=== PATIENT | female | born 1945 | race Caucasian/White ===

== ENCOUNTER 2017-03-13 12:04 | Emergency (ER) | payer MEDICARE, BC ==
[~2017-03-13] VITALS: Ht 160 cm; Wt 73.5 kg
--- OUTSIDE RECORDS SUMMARY | 2017-03-13 12:12 | External Medical Summary Rpt ---
Author Author JONA Day, [employer] Organization [employer] Address Unknown Phone Unavailable
--- OUTSIDE RECORDS SUMMARY | 2017-03-13 12:12 | External Medical Summary Rpt | CCD ---
Author Author [employer] Organization [employer] Address Unknown Phone Unavailable Purpose Continuity of Care Document - through 2016
--- OUTSIDE RECORDS SUMMARY | 2017-03-13 12:12 | External Medical Summary Rpt | CCD ---
Author Author JONA Address Unknown Phone [email or web address] Purpose Continuity of Care Document - through 2016
--- OUTSIDE RECORDS SUMMARY | 2017-03-13 12:12 | External Medical Summary Rpt | CCD ---
Demographics Preferred Language Burmese Marital Status Unknown Faith Affiliation Unknown Race Unknown Ethnic Group Unknown Author Author JONA Address Unknown Phone Immunization No patient found.
--- OUTSIDE RECORDS SUMMARY | 2017-03-13 12:12 | External Medical Summary Rpt | CCD ---
Author Author JONA Address Unknown Phone Purpose Continuity of Care Document - through 2016
--- OUTSIDE RECORDS SUMMARY | 2017-03-13 12:12 | External Medical Summary Rpt | CCD ---
Demographics Preferred Language Qatari Marital Status Unknown Mosque Affiliation Unknown Race Unknown Ethnic Group Unknown Author Author JONA Address Unknown Phone Immunization No patient found.
--- NOTE | 2017-03-13 12:32 | Urgent Treatment Center Report ---
History of Present Issue Date/Time Seen by Provider 03/13/17 1232 Visit Reason Pt arrived:Walked Presenting Problem:URINARY PRESSURE, FREQUENCY BEGAN YESTERDAY, FEELS SHE HAS A UTI Location if Accident: Onset of symptoms date/time:/ or onset unknown for:MEDICAL HX UNKNOWN Have you (or family members/close friends) recently traveled outside the [place]? N If Yes, where/when: Have you had exposure to infectious disease within the past month? TB? Other? Specify: Patient state that she has a history of UTI State that she began feeling pain and pressure with urination yesterday State that she feels like she continuously has to go State that she felt like this the last time she had a UTI State that today she has been having some slight pain and discomfort in her lower back so she came in to have her urine checked ALLERGIES Coded Allergies: No Known Allergies (03/13/17) History Medical History General Hypertension? Yes Immunization HX DT/Tetanus Unknown Surgical Hx Previous Surgery?N Social History Smoking Hx Smoker: Never Smoker Tobacco: No Review of Systems All Other Systems Reviewed and Negative Genitourinary dysuria. Physical Exam Vital Signs Vital Signs Date Time Temp Pulse Resp B/P Pulse O2 O2 Flow FiO2 Ox Delivery Rate 03/13 1218 97.4 70 16 117/79 100 General Appearance normal appearance, WD/WN, no apparent distress Respiratory Status Yes: trachea midline, chest symmetrical, non tender chest. No: respiratory distress. Lung Sounds bilateral: normal breath sounds, lungs clear. Cardiovascular normal exam, regular rate/rhythm, no peripheral edema Gastrointestinal normal bowel sounds, normal exam, non tender, no guarding, no rebound Neurologic alert, normal exam, oriented x 3 Medical Decision Making LABS/Meds/Orders Pt receiving controlled substance in ED? No Results/Orders Laboratory Tests 03/13/17 1235: Urine Color YELLOW, Urine Appearance CLEAR, Urine pH 6.0, Ur Specific [place] <= 1.005, Urine Protein NEGATIVE, Urine Ketones NEGATIVE, Urine Blood NEGATIVE, Urine Nitrate NEGATIVE, Urine Bilirubin NEGATIVE, Urine Urobilinogen 0.2, Ur Leukocyte Esterase TRACE H, Urine Glucose NEGATIVE Orders Procedure Date/time Status [facility] 03/13 1235 Complete Departure Departure Time of Disposition 1239 Disposition DC Home or Self Care(routine) Clinical Impression Primary Impression: UTI (urinary tract infection) Qualifiers: Urinary tract infection type: site unspecified Hematuria presence: without hematuria Qualified Code: N39.0 - Urinary tract infection, site not specified Condition STABLE Referrals JOSE ALFREDO CARTER (Family): 3 Days-Call Office if no improvement Patient Instructions DI for Urinary Tract Infection (UTI), Urinary Tract Infection Additional Instructions *Increase fluids. Water not Soda or Tea *Start antibiotic immediately and be sure to take as ordered for the FULL length of time although you should start to see improvement over the next 48 hours *Pyridium as needed Remember this medication will turn your urine [place]. This is normal but it will stain what ever it gets on *You should not use Pyridium for more than 48 hours. If so , follow up with your primary physician to review urine culture and ensure that antibiotic is adequate for infection *Be SURE to follow up anytime for new or worsening symptoms. AND in 48 hours for urine culture results AND in 10-14 days to repeat UA to ensure infection is resolved and blood no longer present *Be sure to let your PCP know that we sent urine cultures from the [facility] so they can follow up to ensure that you area the on the correct antibiotic Discharge Counseling Counseled pt/family regarding diagnosis, test results, medications/RX, home care, follow up needs Prescriptions Current Visit Scripts SULFAMETHOXAZOLE W/TRIMETHOPRI (Bactrim Ds Tab) 1 TABLET PO BID #20 TAB Phenazopyridine HCl (Pyridium) 100 MG PO TID #6 TAB at 1656
[2017-03-13 12:36] LABS: URINE BILIRUBIN - DIPSTICK NEGATIVE (NEG)
[2017-03-13 12:37] LABS: URINE BLOOD NEGATIVE (NEG)
[2017-03-13] MEDS ORDERED: PYRIDIUM100 M2 PO (12:41)
[2017-03-13] MEDS ORDERED: BACTRIM DS 8001 TA1 PO (12:41)
[2017-03-13 12:46] VITALS: BP 118/75
== END 2017-03-13 12:46 | disposition home or self-care (01) ==
LOC: UTC 12:04
PROVIDERS: Nurse Practitioner
DX: N39.0 Urinary tract infection, site not specified (principal)